=== PATIENT | female | born 1960 | race Hispanic/Latino ===

== ENCOUNTER 2017-09-06 10:09 | Observation (INO) | payer OTHER, SELFPAY ==
[2017-09-06 10:47] LABS: #Basophils 0.1 thou/uL (0.0-0.2); #Eosinphils 0.1 thou/uL (0.0-0.7); #Lymphocytes 2.3 thou/uL (1.20-3.40); #Monocytes 0.4 thou/uL (0.11-0.59); #Neutrophils 7.7 thou/uL (1.40-6.50); %Basophils 0.9 % (0.0-1.0); %Eosinophils 1.1 % (0.0-10.0); %Lymphocytes 21.6 % (21.0-51.0); %Monocytes 3.5 % (0.0-10.0); %Neutrophils 72.9 % (42.0-75.0); Hemoglobin 14.5 g/dL (12.0-16.0); Mean Corpuscular HGB CONC 33.3 g/dL (32.0-36.0); Mean Corpuscular Hemoglobin 29.7 pg (27.0-31.0); Mean Platelet Volume 9.1 fL (7.4-10.4); Platelet Count 267 thou/uL (130-400); Red Blood Cell (RBC) Count 4.88 mill/uL (4.20-5.40); White Blood Cell (WBC) Count 10.6 thou/uL (4.8-10.8)
[2017-09-06 10:57] LABS: ALT (SGPT) 27 U/L (8-55); AST (SGOT) 19 U/L (5-34); Albumin 4.6 g/dL (3.5-5.0); Alkaline Phosphatase 72 U/L (40-150); Anion Gap 16 mmol/L (10-20); BUN (Urea Nitrogen) 17 mg/dL (9.8-20.1); Bilirubin, Total 0.6 mg/dL (0.2-1.2); Calc. Creatinine Clearance 0 mL/min (70-130); Calcium 10.3 mg/dL (7.8-10.44); Carbon Dioxide 24 mmol/L (22-29); Chloride 104 mmol/L (98-107); Estimated GFR-MDRD 87; Glucose 102 mg/dL (70-105); Potassium 3.9 mmol/L (3.5-5.1); Protein, Total 7.6 g/dL (6.0-8.3); Sodium 140 mmol/L (136-145)
[2017-09-06 11:01] LABS: CKMB 1.2 ng/mL (0-6.6); Troponin I Less than 0.010 ng/mL (< 0.028)
[2017-09-06 11:10] LABS: PTT 34.4 SEC (22.9-36.1); Prothrombin Time 12.9 SEC (12.0-14.7)
--- NOTE | 2017-09-06 11:22 | CT ---
HEAD CT WITHOUT CONTRAST: Date: 09/06/17 COMPARISON: None. HISTORY: Lightheaded and dizzy. TECHNIQUE: Serial axial CT imaging at 4.8 mm intervals from vertex through skull base without contrast. FINDINGS: The imaged paranasal sinuses and mastoid air cells are well aerated. There is no displaced calvarial fracture, intracranial hemorrhage, midline shift, or mass effect. IMPRESSION: No intracranial hemorrhage or displaced calvarial fracture. POS: ESCOBAR
[2017-09-06] MEDS ORDERED: Aspirin 325 MG TAB ONE (12:48)
[2017-09-06 14:56] VITALS: BMI 32.7
[2017-09-06] MEDS ORDERED: Ondansetron HCl/PF 4 MG/2 ML Vial IVP PRN (15:32)
[2017-09-06] MEDS ORDERED: HumaLOG 300 UNITS/3 ML VIAL SC PRN ×2 (15:32)
[2017-09-06] MEDS ORDERED: Dextrose 50% Abboject 50 ML SYRINGE SLOW IVP PRN (15:32)
[2017-09-06] MEDS ORDERED: Dextrose 5% in Water 1,000 ML IV PRN (15:32)
[2017-09-06] MEDS ORDERED: Senokot 8.6 MG TAB PO PRN (15:32)
[2017-09-06] MEDS ORDERED: Acetaminophen 325 MG TAB PO PRN (15:32)
[2017-09-06] MEDS ORDERED: Guaifenesin DM 100-10/5 ML UDCUP PO PRN (15:32)
--- NOTE | 2017-09-06 18:33 | MRI ---
MRI BRAIN NONCONTRAST: HISTORY: 57-year-old female with TIA. Dysarthria, dizziness, altered mental status, nausea. FINDINGS: The ventricles are normal in size and configuration. There is no restricted diffusion, midline shift or any other mass effect, recent intraaxial hemorrhage, or extraaxial fluid collection. There are a few scattered punctate T2-hyperintensities in the cerebral white matter consistent with mild chronic ischemic white matter changes due to mild microvascular atherosclerosis. IMPRESSION: 1. Mild chronic ischemic white matter changes. 2. Otherwise negative. keenan POS: MAGGI
--- NOTE | 2017-09-06 19:47 | HP ---
REASON FOR ADMISSION: Possible transient ischemic attack. HISTORY OF PRESENT ILLNESS: The patient gives history of feeling dizzy with left facial twinge and slurring her speech, which happened early this morning. She has had similar episode on the of this month when she had coughing spells with vomiting multiple times then. She had gone to see her school nurse and was told to take aspirin. Patient had gone to [facility] on Wednesday, but was not allowed to see any physician. She later went to [facility] and was again advised to take aspirin and was told it could be a mini stroke. Currently, she has no complaints of any specific weakness in any of her extremities. Her left facial twinging sensation and slurred speech is completely resolved at present. No complaints of diarrhea or chest pain. Her dizziness is currently resolved. The patient states she attained menopause 6 years back and has not had any hot flashes. PAST MEDICAL/SURGICAL HISTORY: Diabetes mellitus type 2, hypertension, dyslipidemia, and tubal ligation. CURRENT MEDICATIONS: Takes metformin 500 mg twice daily, lisinopril with hydrochlorothiazide 20/25 mg daily, and atorvastatin 10 mg p.o. at bedtime. ALLERGIES: No known drug allergies. PERSONAL HISTORY: Does not abuse alcohol or drugs, smokes 2-3 cigarettes a day. Works as a paraprofessional teacher. FAMILY HISTORY: Mother is living and has history of diabetes and hypertension. Father in his 70s. REVIEW OF SYSTEMS: The following complete review of systems was negative, unless otherwise mentioned in the HPI or below: Constitutional: Weight loss or gain, ability to conduct usual activities. Skin: Rash, itching. Eyes: Double vision, pain. ENT/Mouth: Nose bleeding, neck stiffness, pain, tenderness. Cardiovascular: Palpitations, dyspnea on exertion, orthopnea. Respiratory: Shortness of breath, wheezing, cough, hemoptysis, fever or night sweats. Gastrointestinal: Poor appetite, abdominal pain, heartburn, nausea, vomiting, constipation, or diarrhea. Genitourinary: Urgency, frequency, dysuria, nocturia. Musculoskeletal: Pain, swelling. Neurologic/Psychiatric: Anxiety, depression. Allergy/Immunologic: Skin rash, bleeding tendency. PHYSICAL EXAMINATION: GENERAL: The patient is a 57-year-old female who is currently not in any acute distress. VITAL SIGNS: Blood pressure 100/54, pulse 80 per minute, respiratory rate 16 per minute, temperature 98 degrees Fahrenheit, and saturating 99% on room air. NECK: Supple, no elevated JVD. HEENT: Extraocular muscles intact. Pupils reacting to light. Oral cavity, mucous membranes are moist. No exudates or congestion. CARDIOVASCULAR: S1, S2 heard. Regular rhythm. RESPIRATORY: Air entry 2+ bilateral. No rales or rhonchi. ABDOMEN: Soft, bowel sounds heard. No tenderness, rigidity or guarding. EXTREMITIES: No peripheral edema or calf tenderness. VASCULAR SYSTEM: Peripheral pulses 2+ bilateral, no ischemic ulcerations or gangrene. CENTRAL NERVOUS SYSTEM: Patient is alert, awake, oriented x3. Cranial nerves are grossly intact. Motor system strength is 5/5, reflexes are 2+ bilateral. Babinski is downgoing. Cerebellar signs are intact. Gait was not tested. PSYCHIATRIC: The patient is a bit anxious, otherwise no hallucinations or delusions. LABORATORY AND X-RAY FINDINGS: CT brain done showed no acute intracranial hemorrhage or displaced calvarial fractures. Electrolytes are stable. BUN 17, creatinine 0.7. Liver enzymes within normal limits. First set of cardiac enzymes are negative. Albumin is 4.6. White count of 10, H&H 14 and 43, platelet count 267, MCV is 89 with 72% neutrophils. Telemetry shows normal sinus rhythm. CLINICAL IMPRESSION AND PLAN: The patient will be under observation on the stroke unit for possible TIA. Clinically, patient has no signs or symptoms of stroke at present. In view of recurrent symptoms and multiple risk factors, we will obtain an MRI without contrast and echo with 2D Doppler. We will continue her on aspirin and Lipitor. Her lisinopril with hydrochlorothiazide will be held for now. Metformin will be held as well. We will follow TIA protocol. Likely patient can be discharged when the results of the tests and investigations are available. She is currently hemodynamically stable. We will obtain orthostatic blood pressures as well. JEANNE
[2017-09-06] MEDS ORDERED: Rosuvastatin 10 MG TAB PO SCH (21:00)
[2017-09-06] MEDS: Famotidine 20 MG TAB PO SCH (21:26)
[2017-09-07 05:52] LABS: #Basophils 0.1 thou/uL (0.0-0.2); #Eosinphils 0.2 thou/uL (0.0-0.7); #Monocytes 0.5 thou/uL (0.11-0.59); #Neutrophils 6.3 thou/uL (1.40-6.50); %Basophils 0.8 % (0.0-1.0); %Eosinophils 2.4 % (0.0-10.0); %Lymphocytes 29.6 % (21.0-51.0); %Neutrophils 62.1 % (42.0-75.0); Hemoglobin 13.9 g/dL (12.0-16.0); Mean Corpuscular HGB CONC 33.1 g/dL (32.0-36.0); Mean Corpuscular Hemoglobin 30.1 pg (27.0-31.0); Mean Corpuscular Volume 90.9 fl (81.0-99.0); Mean Platelet Volume 7.7 fL (7.4-10.4); Platelet Count 273 thou/uL (130-400); RBC Distribution Width 12.1 % (11.5-14.5); Red Blood Cell (RBC) Count 4.64 mill/uL (4.20-5.40); White Blood Cell (WBC) Count 10.1 thou/uL (4.8-10.8)
[2017-09-07 06:11] LABS: Anion Gap 10 mmol/L (10-20); BUN (Urea Nitrogen) 15 mg/dL (9.8-20.1); Calc. Creatinine Clearance 118 mL/min (70-130); Calcium 9.8 mg/dL (7.8-10.44); Carbon Dioxide 29 mmol/L (22-29); Cardiac Risk 3.7 (Less than 4.5); Cholesterol 119 mg/dl (< 200 Desired); Estimated GFR-MDRD 90; Glucose 109 mg/dL (70-105); HDL Cholesterol 32 mg/dL (>60 Neg Risk); LDL Cholesterol, Calculated 65 mg/dL; Potassium 3.8 mmol/L (3.5-5.1); Sodium 140 mmol/L (136-145); Triglycerides 108 mg/dL (Less than 150)
[2017-09-07 06:31] LABS: Chloride 105 mmol/L (98-107)
[2017-09-07] MEDS: Famotidine 20 MG TAB PO SCH (08:09)
[2017-09-07] MEDS ORDERED: Aspirin 81 mg Enteric Coated Tablet PO SCH (09:00)
[2017-09-07] MEDS ORDERED: Enoxaparin Sodium 40 MG/0.4 ML SYRINGE SC SCH (09:00)
[2017-09-07 15:48] VITALS: BP 129/83; TEMP 98.2
--- NOTE | 2017-09-07 18:04 | DIS ---
DATE OF ADMISSION: 09/06/2017 DATE OF DISCHARGE: 09/07/2017 ADMITTING DIAGNOSIS: Transient ischemic attack. DISCHARGE DIAGNOSIS: Transient ischemic attack. SECONDARY DIAGNOSES: 1. Low blood pressures with history of hypertension. 2. Type 2 diabetes mellitus. 3. Hyperlipidemia. IMAGING: MRI of the brain was negative for any stroke. HISTORY OF PRESENT ILLNESS AND HOSPITAL COURSE: In brief, this is a 57-year-old female who presented to the hospital with dizziness and left facial twinge and slurring of speech. When she arrived in [facility] ER, she also had episodes of coughing and vomiting. 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, and was told by the physician to take aspirin and was told that she was having a mini stroke and she was noted to have left facial tingling sensation and slurred speech which was complet gee resolved when she presented to the ER. The patient had no other symptoms, no other neurologic de ficits. She had a CT of the head which was negative and the following day, she also had MRI of the b rain which was unremarkable. She had neuro checks q.4-6 hours while in the hospital which turned out to be normal, and patient also had low blood pressures. She was on high dose of lisinopril 20 mg an d hydrochlorothiazide of 25 mg this has been changed to 5 mg a day at the time of discharge and also aspirin was prescribed. The patient was discharged home in stable condition. PHYSICAL EXAMINATION: On date of discharge: VITAL SIGNS: Blood pressure 129/83, heart rate is 86, respiration rate 16, saturations 95%. GENERAL: The patient is moderately built, moderately nourished, does not appear to be in acute distr ess. CARDIOVASCULAR: S1, S2 normal. No murmurs, rubs or gallops. LUNGS: Bilateral air entry was equal. No wheezing, no crackles. ABDOMEN: Soft, nontender, no guarding, no rebound tenderness. Bowel sounds normal. MUSCULOSKELETAL: No calf tenderness. No pedal edema. No joint tenderness, no joint swelling. SKIN: No cyanosis, no erythema, no rash, no pallor. DISCHARGE MEDICATIONS: Atorvastatin 10 mg p.o. at bedtime, metformin 500 mg p.o. b.i.d. New medications are lisinopril 5 mg p.o. daily and aspirin 81 mg p.o. daily. DISCHARGE INSTRUCTIONS: Continue activity as tolerated. Advised to follow up with primary care phys ician in 1-2 weeks to check on the blood pressures. Advised to return to the ER if the patient devel ops any further slurring of the speech and worsening weakness. The patient is advised to continue on the diabetic diet. I spent 35 minutes with this patient on the day of discharge.
== END 2017-09-07 17:35 | disposition home or self-care (01) ==
LOC: SCSER 10:09 → 2SE 11:55
PROVIDERS: ADMIT Internal Medicine; ATTEND Internal Medicine
DX: G45.9 Transient cerebral ischemic attack, unspecified (principal); E11.9 Type 2 diabetes mellitus without complications; E78.5 Hyperlipidemia, unspecified; I10 Essential (primary) hypertension; F17.210 Nicotine dependence, cigarettes, uncomplicated; Z79.84 Long term (current) use of oral hypoglycemic drugs; Z79.82 Long term (current) use of aspirin; Z79.899 Other long term (current) drug therapy
CPT/HCPCS: 36415; 36416; 70450; 70551; 80048; 80053; 80061; 82553; 84484; 85025; 85610; 85730; 93005; 93306; 96372; G0378; J1650